=== PATIENT | female | born 1945 ===

== ENCOUNTER 2018-10-17 05:10 | Day surgery (SDC) | payer OTHER ==
[~2018-10-17 05:10] MED LIST: ANASTROZOLE1 MG PO; ASPIRIN81 M1 PO; CRESTOR40 MG PO; FORTAMET1000 MG PO; FOSINOPRIL SODI40 MG PO; HUMOLOG; LYRICA PO; NORVASC5 MG PO
[2018-10-17] MEDS ORDERED: ULTRACET PO (09:00)
[2018-10-17] MEDS ORDERED: MACROBID 100 M100 MG PO (09:00)
== END 2018-10-17 11:05 | disposition home or self-care (01) ==
LOC: CIR.AMB 05:10
DX: N72 Inflammatory disease of cervix uteri (principal)